=== PATIENT | male | born 1955 | race Caucasian/White ===

== ENCOUNTER 2018-08-17 08:19 | Day surgery (SDC) | payer OTHER ==
[2018-08-17] MEDS: LIDOCAINE 1% (MPF) 5 ML VIAL (11:49)
== END 2018-08-17 13:00 | disposition home or self-care (01) ==
LOC: SDS 08:19
DX: R18.8 Other ascites (principal); C22.0 Liver cell carcinoma
CPT/HCPCS: 49083

== ENCOUNTER 2018-09-14 08:34 | Inpatient (IN) | payer OTHER ==
[2018-09-14 09:14] LABS: ADD MAN DIFF? NO
[2018-09-14 09:23] LABS: WHITE BLOOD COUNT 5.5 10^3/ul (4.8-10.8)
[2018-09-14 09:23] LABS: ABNORMAL IP MESSAGE 1; BASOPHILS % 0.7 % (0.0-2.0); EOSINOPHILS # 0.2 10^3/ul (0.0-0.5); EOSINOPHILS % 3.1 % (0.0-7.0); HEMATOCRIT 34.6 % (42.0-52.0); HEMOGLOBIN 11.8 g/dl (14.0-18.0); LYMPHOCYTES % 18.1 % (15.0-51.0); MEAN CORPUSCULAR HEMOGLOBIN 34.8 pg (29.0-33.0); MEAN CORPUSCULAR HGB CONC 34.1 g/dl (32.0-37.0); MEAN CORPUSCULAR VOLUME 102.1 fl (82.0-101.0); MEAN PLATELET VOLUME 10.6 fl (7.4-10.4); MONOCYTE # 0.5 10^3/ul (0.3-0.9); MONOCYTES % 8.4 % (0.0-11.0); NEUTROPHIL # 3.8 10^3/ul (1.6-7.5); NEUTROPHILS % 69.2 % (39.0-77.0); PLATELET COUNT 81 10^3/UL (140-415); POSITIVE DIFF @See below; RED BLOOD COUNT 3.39 10^6/ul (4.70-6.10); RED CELL DISTRIBUTION WIDTH 15.4 % (11.5-14.5)
[2018-09-14 09:37] LABS: INR 1.22; PROTIME 15.5 Sec (11.9-14.9); PT RATIO 1.2
[2018-09-14 09:38] LABS: ADD UMIC YES; UR ASCORBIC ACID NEGATIVE (NEGATIVE); UR BACTERIA FEW /HPF (NONE SEEN); UR BILIRUBIN (Dip) 1+ mg/dL (NEGATIVE); UR BLOOD (Dip) 1+ mg/dL (NEGATIVE); UR CLARITY CLOUDY (CLEAR); UR COLOR AMBER (YELLOW); UR GLUCOSE (Dip) NEGATIVE (NEGATIVE); UR GRANULAR CAST FEW /HPF (NONE SEEN); UR HYALINE CAST FEW /HPF (NONE SEEN); UR KETONES (Dip) NEGATIVE (NEGATIVE); UR LEUKOCYTE ESTERASE (Dip) 1+ Leu/ul (NEGATIVE); UR MUCUS FEW /HPF (NONE SEEN); UR NITRITE (Dip) NEGATIVE (NEGATIVE); UR RBC 11 /HPF (0-5); UR SPECIFIC GRAVITY (Dip) 1.019 (1.003-1.030); UR SQUAMOUS EPITHELIAL CELL FEW /HPF (FEW); UR TOTAL PROTEIN (Dip) 1+ mg/dl (NEGATIVE); UR UROBILINOGEN (Dip) 2+ mg/dL (NEGATIVE); UR WBC 72 /HPF (0-5); UR WBC CAST FEW /HPF (NONE SEEN)
[2018-09-14 09:44] LABS: ALANINE AMINOTRANSFERASE 45 IU/L (13-69); ALBUMIN 2.8 g/dl (3.3-4.9); ALBUMIN/GLOBULIN RATIO 0.58; ALKALINE PHOSPHATASE 335 IU/L (42-121); ANION GAP 11 (5-13); ASPARTATE AMINO TRANSFERASE 143 IU/L (15-46); BILIRUBIN,INDIRECT 2.2 mg/dl (0-1.1); BILIRUBIN,TOTAL 5.4 mg/dl (0.2-1.3); BLOOD UREA NITROGEN 74 mg/dl (7-20); CALCIUM 8.8 mg/dl (8.4-10.2); CARBON DIOXIDE 29 mmol/L (21-31); CHLORIDE 93 mmol/L (97-110); CREATININE 6.62 mg/dl (0.61-1.24); Estimated GFR 8 mL/min (>60); GLUCOSE 101 mg/dl (70-220); LIPASE 1426 U/L (23-300); POTASSIUM 4.9 mmol/L (3.5-5.1); SODIUM 133 mmol/L (135-144); TOTAL PROTEIN 7.6 g/dl (6.1-8.1)
[2018-09-14] MEDS: SOD CHLORIDE 0.9% 1,000 ML IV ×4 (11:08→18:25)
[2018-09-14] MEDS: CEFTRIAXONE 1 GM/50 ML (PMX) 50 ML IVPB ×2 (11:16→18:24)
[2018-09-14 14:59] LABS: AMMONIA < 9 umol/l (9-30)
[2018-09-14 16:38] LABS: ANION GAP 11 (5-13); BLOOD UREA NITROGEN 67 mg/dl (7-20); CALCIUM 7.7 mg/dl (8.4-10.2); CARBON DIOXIDE 23 mmol/L (21-31); CHLORIDE 99 mmol/L (97-110); CREATININE 5.53 mg/dl (0.61-1.24); Estimated GFR 10 mL/min (>60); GLUCOSE 89 mg/dl (70-220); POTASSIUM 4.2 mmol/L (3.5-5.1); SODIUM 133 mmol/L (135-144)
[2018-09-14] MEDS: ALBUMIN HUMAN 25% 100 ML IV (19:07)
[2018-09-14] MEDS ORDERED: PROPRANOLOL 10 MG TAB PO (21:00)
[2018-09-14] MEDS: MIDODRINE 5 MG TAB PO (21:02)
[2018-09-15] MEDS: ALBUMIN HUMAN 25% 100 ML IV ×3 (00:44→17:21)
[2018-09-15] MEDS: ACCU-CHEK XX ×2 (02:00→22:59)
[2018-09-15 08:36] LABS: ADD MAN DIFF? NO
[2018-09-15] MEDS: PANTOPRAZOLE 40 MG INJ IV (08:39)
[2018-09-15] MEDS: MIDODRINE 5 MG TAB PO ×3 (08:40→21:10)
[2018-09-15 08:44] LABS: ABNORMAL IP MESSAGE 1; BASOPHILS % 0.9 % (0.0-2.0); EOSINOPHILS # 0.1 10^3/ul (0.0-0.5); EOSINOPHILS % 2.5 % (0.0-7.0); HEMATOCRIT 31.6 % (42.0-52.0); HEMOGLOBIN 10.8 g/dl (14.0-18.0); LYMPHOCYTES # 0.5 10^3/ul (0.8-2.9); LYMPHOCYTES % 15.3 % (15.0-51.0); MEAN CORPUSCULAR HEMOGLOBIN 34.7 pg (29.0-33.0); MEAN CORPUSCULAR HGB CONC 34.2 g/dl (32.0-37.0); MEAN CORPUSCULAR VOLUME 101.6 fl (82.0-101.0); MONOCYTE # 0.3 10^3/ul (0.3-0.9); NEUTROPHIL # 2.3 10^3/ul (1.6-7.5); NEUTROPHILS % 71.7 % (39.0-77.0); PLATELET COUNT 47 10^3/UL (140-415); POSITIVE DIFF @See below; RED BLOOD COUNT 3.11 10^6/ul (4.70-6.10); RED CELL DISTRIBUTION WIDTH 15.3 % (11.5-14.5)
[2018-09-15 08:44] LABS: WHITE BLOOD COUNT 3.2 10^3/ul (4.8-10.8)
[2018-09-15 08:51] LABS: HEMOGLOBIN A1C 5.1 % (0-5.9)
[2018-09-15] MEDS ORDERED: LISINOPRIL 5 MG TAB PO (09:00)
[2018-09-15 09:27] LABS: ANION GAP 14 (5-13); BLOOD UREA NITROGEN 74 mg/dl (7-20); CALCIUM 8.6 mg/dl (8.4-10.2); CARBON DIOXIDE 24 mmol/L (21-31); CHLORIDE 97 mmol/L (97-110); CREATININE 5.64 mg/dl (0.61-1.24); Estimated GFR 10 mL/min (>60); GLUCOSE 90 mg/dl (70-220); POTASSIUM 4.7 mmol/L (3.5-5.1); SODIUM 135 mmol/L (135-144)
[2018-09-15] MEDS: SOD CHLORIDE 0.45% 1,000 ML IV (17:20)
[2018-09-16] MEDS: ALBUMIN HUMAN 25% 100 ML IV (00:08)
[2018-09-16] MEDS: PANTOPRAZOLE (EC) 40 MG TAB PO (05:16)
[2018-09-16 06:23] LABS: ABNORMAL IP MESSAGE 1; HEMATOCRIT 27.8 % (42.0-52.0); HEMOGLOBIN 9.6 g/dl (14.0-18.0); MEAN CORPUSCULAR HGB CONC 34.5 g/dl (32.0-37.0); MEAN CORPUSCULAR VOLUME 101.5 fl (82.0-101.0); MEAN PLATELET VOLUME 10.7 fl (7.4-10.4); PLATELET COUNT 39 10^3/UL (140-415); POSITIVE DIFF @See below; RED BLOOD COUNT 2.74 10^6/ul (4.70-6.10)
[2018-09-16 06:23] LABS: WHITE BLOOD COUNT 2.4 10^3/ul (4.8-10.8)
[2018-09-16 06:42] LABS: ALANINE AMINOTRANSFERASE 37 IU/L (13-69); ALKALINE PHOSPHATASE 211 IU/L (42-121); ASPARTATE AMINO TRANSFERASE 86 IU/L (15-46); BILIRUBIN,INDIRECT 2.8 mg/dl (0-1.1); BILIRUBIN,TOTAL 6.3 mg/dl (0.2-1.3); TOTAL PROTEIN 6.5 g/dl (6.1-8.1)
[2018-09-16 06:57] LABS: ANION GAP 12 (5-13); BLOOD UREA NITROGEN 70 mg/dl (7-20); CALCIUM 8.6 mg/dl (8.4-10.2); CARBON DIOXIDE 23 mmol/L (21-31); CHLORIDE 98 mmol/L (97-110); CREATININE 4.15 mg/dl (0.61-1.24); Estimated GFR 15 mL/min (>60); GLUCOSE 96 mg/dl (70-220); SODIUM 133 mmol/L (135-144)
[2018-09-16 07:07] LABS: ADD MAN DIFF? YES
[2018-09-16 08:19] LABS: ANISOCYTOSIS 1+ (0-0); BAND NEUTROPHILS #M 0.2 10^3/ul (0.0-0.6); BAND NEUTROPHILS % (M) 9 % (0-4); BASOPHILS % (M) 3 % (0-2); EOSINOPHILS % (M) 1 % (0-7); LYMPHOCYTES #M 0.2 10^3/ul (0.8-2.9); LYMPHOCYTES % (M) 9 % (15-51); MONOCYTE #M 0.2 10^3/ul (0.3-0.9); MONOCYTES % (M) 10 % (0-11); PLATELET ESTIMATE SIG DECREASED; POIKILOCYTOSIS 1+ (0-0); SEG NEUT #M 1.6 10^3/ul (1.6-7.5); SEGMENTED NEUTROPHILS (M) % 68 % (39-77); SMUDGE%M 7 % (0-0); TARGET CELLS 1+ (0-0)
[2018-09-16] MEDS: MIDODRINE 5 MG TAB PO ×3 (08:59→20:15)
[2018-09-16 11:57] LABS: IRON 85 ug/dl (35-150)
[2018-09-16 11:58] LABS: RETICULOCYTE COUNT % 2.2 % (0.5-1.5)
[2018-09-16 11:58] LABS: RETICULOCYTE RBC 2.73
[2018-09-16 12:07] LABS: % IRON SATURATION 64 % SAT (22-52); TOTAL IRON BINDING CAPACITY 132 ug/dl (241-421)
[2018-09-16 13:06] LABS: FOLATE 12.5 ng/ml (2.8-20.0)
[2018-09-16] MEDS: SOD CHLORIDE 0.9% 1,000 ML IV (19:09)
[2018-09-17] MEDS: ACCU-CHEK XX (02:00)
[2018-09-17 02:15] LABS: SODIUM,URINE RANDOM < 13 mmol/L (30-90)
[2018-09-17 04:10] LABS: OCCULT BLOOD STOOL NEGATIVE (NEGATIVE)
[2018-09-17] MEDS: PANTOPRAZOLE (EC) 40 MG TAB PO (05:25)
[2018-09-17 06:34] LABS: ADD MAN DIFF? NO
[2018-09-17 06:38] LABS: ABNORMAL IP MESSAGE 1; BASOPHILS % 1.3 % (0.0-2.0); EOSINOPHILS # 0.1 10^3/ul (0.0-0.5); EOSINOPHILS % 3.2 % (0.0-7.0); HEMATOCRIT 30.7 % (42.0-52.0); HEMOGLOBIN 10.6 g/dl (14.0-18.0); LYMPHOCYTES # 0.4 10^3/ul (0.8-2.9); LYMPHOCYTES % 13.8 % (15.0-51.0); MEAN CORPUSCULAR HGB CONC 34.5 g/dl (32.0-37.0); MEAN CORPUSCULAR VOLUME 101.3 fl (82.0-101.0); MEAN PLATELET VOLUME 10.3 fl (7.4-10.4); MONOCYTE # 0.3 10^3/ul (0.3-0.9); MONOCYTES % 10.6 % (0.0-11.0); NEUTROPHIL # 2.2 10^3/ul (1.6-7.5); NEUTROPHILS % 70.5 % (39.0-77.0); PLATELET COUNT 55 10^3/UL (140-415); POSITIVE DIFF @See below; RED BLOOD COUNT 3.03 10^6/ul (4.70-6.10); RED CELL DISTRIBUTION WIDTH 14.9 % (11.5-14.5)
[2018-09-17 06:38] LABS: WHITE BLOOD COUNT 3.1 10^3/ul (4.8-10.8)
[2018-09-17 07:10] LABS: ALANINE AMINOTRANSFERASE 39 IU/L (13-69); ALBUMIN/GLOBULIN RATIO 0.75; ALKALINE PHOSPHATASE 240 IU/L (42-121); ANION GAP 14 (5-13); ASPARTATE AMINO TRANSFERASE 103 IU/L (15-46); BILIRUBIN,INDIRECT 2.8 mg/dl (0-1.1); BILIRUBIN,TOTAL 7.6 mg/dl (0.2-1.3); BLOOD UREA NITROGEN 67 mg/dl (7-20); CALCIUM 8.9 mg/dl (8.4-10.2); CARBON DIOXIDE 22 mmol/L (21-31); CHLORIDE 98 mmol/L (97-110); Estimated GFR 17 mL/min (>60); GLUCOSE 119 mg/dl (70-220); POTASSIUM 4.2 mmol/L (3.5-5.1); SODIUM 134 mmol/L (135-144)
[2018-09-17] MEDS: MIDODRINE 5 MG TAB PO ×3 (08:56→20:29)
[2018-09-17] MEDS: SOD CHLORIDE 0.9% 1,000 ML IV (10:48)
[2018-09-18] MEDS ORDERED: traMADol 50 MG TAB PO (01:00)
[2018-09-18] MEDS: SOD CHLORIDE 0.9% 1,000 ML IV ×2 (01:11→05:11)
[2018-09-18] MEDS: PANTOPRAZOLE (EC) 40 MG TAB PO (05:10)
[2018-09-18 06:15] LABS: ALANINE AMINOTRANSFERASE 41 IU/L (13-69); ALBUMIN 3.1 g/dl (3.3-4.9); ALBUMIN/GLOBULIN RATIO 0.81; ALKALINE PHOSPHATASE 274 IU/L (42-121); ANION GAP 10 (5-13); ASPARTATE AMINO TRANSFERASE 118 IU/L (15-46); BILIRUBIN,INDIRECT 2.7 mg/dl (0-1.1); BILIRUBIN,TOTAL 7.7 mg/dl (0.2-1.3); BLOOD UREA NITROGEN 65 mg/dl (7-20); CALCIUM 9.1 mg/dl (8.4-10.2); CARBON DIOXIDE 23 mmol/L (21-31); CHLORIDE 103 mmol/L (97-110); CREATININE 3.23 mg/dl (0.61-1.24); Estimated GFR 19 mL/min (>60); GLUCOSE 105 mg/dl (70-220); POTASSIUM 4.5 mmol/L (3.5-5.1); SODIUM 136 mmol/L (135-144); TOTAL PROTEIN 6.9 g/dl (6.1-8.1)
[2018-09-18 06:21] LABS: PHOSPHORUS 4.2 mg/dl (2.5-4.9)
[2018-09-18 06:22] LABS: MAGNESIUM 1.9 mg/dl (1.7-2.5)
[2018-09-18] MEDS: MIDODRINE 5 MG TAB PO ×3 (10:18→20:13)
[2018-09-18] MEDS: LIDOCAINE 1% (MPF) 5 ML VIAL (14:51)
[2018-09-18] MEDS: ALBUMIN HUMAN 25% 100 ML IV ×2 (17:41→23:47)
[2018-09-18] MEDS: OCTREOTIDE 50 MCG INJ SC ×2 (17:42→23:50)
[2018-09-19 05:03] LABS: ADD MAN DIFF? NO
[2018-09-19 05:07] LABS: WHITE BLOOD COUNT 2.2 10^3/ul (4.8-10.8)
[2018-09-19 05:07] LABS: ABNORMAL IP MESSAGE 1; BASOPHILS % 0.9 % (0.0-2.0); EOSINOPHILS # 0.1 10^3/ul (0.0-0.5); EOSINOPHILS % 3.7 % (0.0-7.0); HEMATOCRIT 27.2 % (42.0-52.0); HEMOGLOBIN 9.4 g/dl (14.0-18.0); LYMPHOCYTES # 0.4 10^3/ul (0.8-2.9); LYMPHOCYTES % 19.8 % (15.0-51.0); MEAN CORPUSCULAR HEMOGLOBIN 35.1 pg (29.0-33.0); MEAN CORPUSCULAR HGB CONC 34.6 g/dl (32.0-37.0); MEAN CORPUSCULAR VOLUME 101.5 fl (82.0-101.0); MEAN PLATELET VOLUME 10.8 fl (7.4-10.4); MONOCYTE # 0.3 10^3/ul (0.3-0.9); NEUTROPHIL # 1.4 10^3/ul (1.6-7.5); NEUTROPHILS % 63.6 % (39.0-77.0); PLATELET COUNT 39 10^3/UL (140-415); POSITIVE DIFF @See below; RED BLOOD COUNT 2.68 10^6/ul (4.70-6.10); RED CELL DISTRIBUTION WIDTH 15.4 % (11.5-14.5)
[2018-09-19 05:25] LABS: MAGNESIUM 1.9 mg/dl (1.7-2.5)
[2018-09-19 05:25] LABS: PHOSPHORUS 4.1 mg/dl (2.5-4.9)
[2018-09-19 05:33] LABS: ALANINE AMINOTRANSFERASE 45 IU/L (13-69); ALBUMIN/GLOBULIN RATIO 0.81; ALKALINE PHOSPHATASE 218 IU/L (42-121); ANION GAP 13 (5-13); ASPARTATE AMINO TRANSFERASE 100 IU/L (15-46); BILIRUBIN,INDIRECT 2.5 mg/dl (0-1.1); BLOOD UREA NITROGEN 58 mg/dl (7-20); CALCIUM 9.1 mg/dl (8.4-10.2); CARBON DIOXIDE 24 mmol/L (21-31); CHLORIDE 102 mmol/L (97-110); CREATININE 2.87 mg/dl (0.61-1.24); Estimated GFR 22 mL/min (>60); GLUCOSE 116 mg/dl (70-220); POTASSIUM 4.9 mmol/L (3.5-5.1); SODIUM 139 mmol/L (135-144); TOTAL PROTEIN 6.7 g/dl (6.1-8.1)
[2018-09-19] MEDS: ALBUMIN HUMAN 25% 100 ML IV ×3 (06:44→22:15)
[2018-09-19] MEDS: PANTOPRAZOLE (EC) 40 MG TAB PO (06:44)
[2018-09-19] MEDS: OCTREOTIDE 50 MCG INJ SC ×2 (08:44→13:30)
[2018-09-19] MEDS: MIDODRINE 5 MG TAB PO ×3 (08:45→22:15)
[2018-09-19] MEDS: OCTREOTIDE 100 MCG INJ SC (22:26)
[2018-09-20] MEDS: PANTOPRAZOLE (EC) 40 MG TAB PO (06:00)
[2018-09-20] MEDS: ALBUMIN HUMAN 25% 100 ML IV ×3 (06:08→22:24)
[2018-09-20] MEDS ORDERED: CA CHLORIDE 10% 10 ML SYRINGE (07:00)
[2018-09-20] MEDS: metroNIDAZOLE 500 MG/NS (PMX) 100 ML IVPB (08:01)
[2018-09-20] MEDS ORDERED: CEFTRIAXONE 1 GM INJ IM (09:00)
[2018-09-20] MEDS ORDERED: CEFTRIAXONE 1 GM INJ IVPB (09:00)
[2018-09-20 09:07] LABS: ALBUMIN/GLOBULIN RATIO 1.09; ANION GAP 14 (5-13); Estimated GFR 29 mL/min (>60)
[2018-09-20] MEDS: CEFTRIAXONE 1 GM/NS 50 ML IVPB (09:13)
[2018-09-20] MEDS: MIDODRINE 5 MG TAB PO ×3 (09:14→22:22)
[2018-09-20 09:21] LABS: ALANINE AMINOTRANSFERASE 43 IU/L (13-69); ALBUMIN 3.5 g/dl (3.3-4.9); ALKALINE PHOSPHATASE 198 IU/L (42-121); ASPARTATE AMINO TRANSFERASE 95 IU/L (15-46); BILIRUBIN,INDIRECT 2.9 mg/dl (0-1.1); BILIRUBIN,TOTAL 7.1 mg/dl (0.2-1.3); BLOOD UREA NITROGEN 53 mg/dl (7-20); CALCIUM 9.5 mg/dl (8.4-10.2); CARBON DIOXIDE 23 mmol/L (21-31); CHLORIDE 103 mmol/L (97-110); CREATININE 2.29 mg/dl (0.61-1.24); GLUCOSE 112 mg/dl (70-220); POTASSIUM 4.5 mmol/L (3.5-5.1); SODIUM 140 mmol/L (135-144); TOTAL PROTEIN 6.7 g/dl (6.1-8.1)
[2018-09-20] MEDS: OCTREOTIDE 100 MCG INJ SC ×3 (09:26→22:21)
[2018-09-20] MEDS: INDOMETHACIN 50 MG SUPP PR (12:00)
[2018-09-20 13:09] LABS: TYPE AND SCREEN 1 1
[2018-09-20] MEDS ORDERED: DIPHENHYDRAMINE 50 MG INJ IV (14:00)
[2018-09-20] MEDS ORDERED: ONDANSETRON 4 MG INJ IV (14:00)
[2018-09-20] MEDS ORDERED: HYDROmorphONE 1 MG/5 ML IV SYRINGE IV ×3 (14:00)
[2018-09-20] MEDS ORDERED: MIDAZOLAM 1 MG/ML 2 ML INJ (14:02)
[2018-09-20] MEDS ORDERED: PROPOFOL 0 ML (14:02)
[2018-09-20] MEDS ORDERED: METOCLOPRAMIDE 10 MG INJ (14:03)
[2018-09-20] MEDS ORDERED: IOHEXOL 300MG/ML 30 ML BTL (14:06)
[2018-09-20] MEDS ORDERED: PHENYLephrine (100 MCG/ML) 5ML SYG (14:24)
[2018-09-20] MEDS ORDERED: ETOMIDATE 20 MG INJ (14:27)
[2018-09-20] MEDS ORDERED: ONDANSETRON 4 MG INJ (14:27)
[2018-09-20] MEDS ORDERED: GLUCAGON 1 MG INJ (14:31)
[2018-09-20] MEDS ORDERED: FENTAnyl 50 MCG/ML VIAL (14:33)
[2018-09-21 05:24] LABS: ADD MAN DIFF? NO
[2018-09-21 05:36] LABS: ABNORMAL IP MESSAGE 1; BASOPHILS % 0.9 % (0.0-2.0); EOSINOPHILS # 0.1 10^3/ul (0.0-0.5); EOSINOPHILS % 4.5 % (0.0-7.0); HEMATOCRIT 26.1 % (42.0-52.0); HEMOGLOBIN 8.8 g/dl (14.0-18.0); LYMPHOCYTES # 0.3 10^3/ul (0.8-2.9); LYMPHOCYTES % 14.4 % (15.0-51.0); MEAN CORPUSCULAR HEMOGLOBIN 35.1 pg (29.0-33.0); MEAN CORPUSCULAR HGB CONC 33.7 g/dl (32.0-37.0); MEAN PLATELET VOLUME 10.9 fl (7.4-10.4); MONOCYTE # 0.3 10^3/ul (0.3-0.9); MONOCYTES % 11.3 % (0.0-11.0); NEUTROPHIL # 1.5 10^3/ul (1.6-7.5); NEUTROPHILS % 68.4 % (39.0-77.0); POSITIVE DIFF @See below; RED BLOOD COUNT 2.51 10^6/ul (4.70-6.10); RED CELL DISTRIBUTION WIDTH 15.6 % (11.5-14.5)
[2018-09-21 05:36] LABS: WHITE BLOOD COUNT 2.2 10^3/ul (4.8-10.8)
[2018-09-21 05:52] LABS: PLATELET COUNT 50 10^3/UL (140-415)
[2018-09-21] MEDS: PANTOPRAZOLE (EC) 40 MG TAB PO (06:21)
[2018-09-21 06:23] LABS: ALANINE AMINOTRANSFERASE 41 IU/L (13-69); ALBUMIN 3.8 g/dl (3.3-4.9); ALBUMIN/GLOBULIN RATIO 1.15; ALKALINE PHOSPHATASE 169 IU/L (42-121); ANION GAP 17 (5-13); ASPARTATE AMINO TRANSFERASE 85 IU/L (15-46); BILIRUBIN,INDIRECT 3.3 mg/dl (0-1.1); BILIRUBIN,TOTAL 8.5 mg/dl (0.2-1.3); BLOOD UREA NITROGEN 47 mg/dl (7-20); CALCIUM 9.8 mg/dl (8.4-10.2); CARBON DIOXIDE 23 mmol/L (21-31); CHLORIDE 103 mmol/L (97-110); CREATININE 2.04 mg/dl (0.61-1.24); Estimated GFR 33 mL/min (>60); GLUCOSE 101 mg/dl (70-220); POTASSIUM 4.5 mmol/L (3.5-5.1); SODIUM 143 mmol/L (135-144); TOTAL PROTEIN 7.1 g/dl (6.1-8.1)
[2018-09-21] MEDS: ALBUMIN HUMAN 25% 100 ML IV ×4 (06:23→20:12)
[2018-09-21] MEDS: MIDODRINE 5 MG TAB PO ×3 (09:25→20:24)
[2018-09-21] MEDS: OCTREOTIDE 100 MCG INJ SC ×3 (09:26→20:24)
== END 2018-09-21 23:00 | disposition hospice, home (50) | DRG 435 ==
LOC: TEL 09-16 12:04 → MS1 09-17 00:55 → E/R 08:34 → TEL 11:03
PROC: 0FJB8ZZ Inspection of Hepatobiliary Duct, Via Natural or Artificial Opening Endoscopic (ICD-10-PCS; 2018-09-20 14:00)
PROC: 0W9G3ZZ Drainage of Peritoneal Cavity, Percutaneous Approach (ICD-10-PCS; principal; 2018-09-20 14:01)
PROC: 0W9G3ZZ Drainage of Peritoneal Cavity, Percutaneous Approach (ICD-10-PCS; 2018-09-20 14:01)
PROC: 0W9G3ZX Drainage of Peritoneal Cavity, Percutaneous Approach, Diagnostic (ICD-10-PCS; 2018-09-20 14:01)
PROC: 30233R1 Transfusion of Nonautologous Platelets into Peripheral Vein, Percutaneous Approach (ICD-10-PCS; 2018-09-20 14:01)
PROC: BF10YZZ Fluoroscopy of Bile Ducts using Other Contrast (ICD-10-PCS; 2018-09-20 14:01)
DX: C22.0 Liver cell carcinoma (principal); D61.810 Antineoplastic chemotherapy induced pancytopenia; N17.9 Acute kidney failure, unspecified; E87.1 Hypo-osmolality and hyponatremia; N39.0 Urinary tract infection, site not specified; C78.00 Secondary malignant neoplasm of unspecified lung; K76.6 Portal hypertension; I85.10 Secondary esophageal varices without bleeding; K70.31 Alcoholic cirrhosis of liver with ascites; E86.0 Dehydration; K70.40 Alcoholic hepatic failure without coma; E11.9 Type 2 diabetes mellitus without complications; I10 Essential (primary) hypertension; D50.9 Iron deficiency anemia, unspecified; K31.89 Other diseases of stomach and duodenum; F10.21 Alcohol dependence, in remission; T45.1X5A Adverse effect of antineoplastic and immunosuppressive drugs, initial encounter; Y92.230 Patient room in hospital as the place of occurrence of the external cause; Z79.84 Long term (current) use of oral hypoglycemic drugs; Z87.891 Personal history of nicotine dependence
CPT/HCPCS: 36415; 36430; 71045; 74018; 74181; 74330; 76705; 76775; 80048; 80053; 80076; 81001; 82140; 82270; 82607; 82728; 82746; 82962; 83036; 83540; 83690; 83735; 84100; 84300; 85025; 85045; 85610; 85730; 86644; 86850; 86900; 86901; 86945; 87081; 87086; 99285-25